=== PATIENT | female | born 1955 | race Caucasian/White ===

== ENCOUNTER → 2016-07-19 | Outpatient (CLI) | payer OTHER ==
[~2016-07-19] MED LIST: AMBIEN10 MG PO; DIAZEPAM5 MG; LAMICTAL100 MG PO; MOBIC7.5 MG PO; ZOLOFT50 MG PO
== END | disposition home or self-care (01) ==
LOC: NUC 08:57
DX: R94.8 Abnormal results of function studies of other organs and systems (principal); R10.13 Epigastric pain
CPT/HCPCS: 78264; A9541

== ENCOUNTER 2016-09-12 12:59 | Emergency (ER) | payer OTHER ==
[~2016-09-12] VITALS: Ht 162.6 cm; Wt 59.2 kg
[2016-09-12 13:22] VITALS: BP 104/69
[2016-09-12] MEDS ORDERED: MOTRIN400 MG PO (16:24)
[2016-09-12] MEDS ORDERED: TYLENOL WITH C1 EACH PO (16:35)
== END 2016-09-12 16:49 | disposition home or self-care (01) ==
LOC: EME 12:59
DX: M75.22 Bicipital tendinitis, left shoulder (principal)
CPT/HCPCS: 73030; 99281; 99284

== ENCOUNTER → 2016-12-12 | Outpatient (CLI) | payer OTHER ==
[~2016-12-12] MED LIST changes: +MOTRIN400 MG PO; +TYLENOL WITH C1 EACH PO
== END | disposition home or self-care (01) ==
LOC: NUC 10-05 09:00
DX: R10.13 Epigastric pain (principal); K30 Functional dyspepsia; R19.4 Change in bowel habit; R93.8 Abnormal findings on diagnostic imaging of other specified body structures
CPT/HCPCS: 78227; A9510; J2805